=== PATIENT | female | born 1950 | race Caucasian/White ===

== ENCOUNTER 2017-01-25 17:03 | Inpatient (IN) | payer MEDICARE ==
--- NOTE | ~2017-01-25 | IDS ---
Interim Discharge Summary [facility] [address] [facility] [place]. [address] NAME: WESTON PAZ : 50 STATUS : ADM IN PAT#: [id number] AGE: 66 ADM/REG DATE : 01/25/17 MR#: [id number] REPORT SERV DATE: 01/30/17 DICTATED BY: SHANTELLE ZHENG DATE: 01/30/17 REPORT STATUS : Draft TRANSCRIBED BY: MODL DATE: 01/30/17 ADMISSION DATE: 01/25/2017 DISCHARGE DATE: Please see Dr. Lokesh Berg's admitting history and physical from 01/25/2017, for full details. Briefly, Ms. Paz is a 66-year-old, white female, who was admitted through the emergency department with respiratory failure. She was already intubated upon Dr. Berg's evaluation due to cyanosis and desaturation in the 60s. She was found to have a lactate level of 9 and infiltrate on chest x-ray and was admitted to the ICU with a presumptive diagnosis of pneumonia with septic shock. HOSPITAL COURSE: Ms. Paz was treated aggressively for septic shock with fluids, broad- spectrum antibiotics, and was mechanically ventilated. She was supported with both vasopressors and coverage for community-acquired pneumonia including Rocephin and azithromycin. She did not improve over the first couple of days with regard to her ability to wean from the ventilator and was upgraded to vancomycin and Zosyn, as she was quite disheveled upon her presentation and there was a concern for community-acquired MRSA as an etiology for her pneumonia. She had cultures and was treated with maintenance fluids. I picked up her care initially on Friday morning and felt she was somewhat volume overloaded with a net in greater than out and pulmonary vascular congestion on chest x-ray. She was diuresed with Bumex and had excellent urine output response. She continued to be treated with broad-spectrum antibiotics, bronchodilators and corticosteroids, and she was ultimately extubated on the . Since that time, she has been tolerating weaning of nasal oxygen and is considerably more awake and alert. Of note, she does have significant anxiety component to her shortness of breath and did require Seroquel and Precedex to control her anxiety. To extubate her, the Seroquel and Precedex has since been weaned off. ACTIVE PROBLEM LIST: At this point, includes acute hypoxemic and hypercapnic respiratory failure, status post extubation on 4:12 a.m., pneumonia, septic shock with marked lactic acidosis upon admission and associated shock liver now improved, acute kidney injury likely secondary to hypoperfusion during shock, toxic metabolic encephalopathy and agitation likely secondary to sepsis/toxin metabolic with question of underlying psychiatric illness, all of which is improved. She is a long-term tobacco abuser and is on a transdermal nicotine patch which we believe may have contributed to controlling her agitation and a couple of her home medications have been restarted as well. For prophylaxis, she is on Lovenox and proton pump inhibitor and she is a full code. She has morning labs ordered for tomorrow. Physical Therapy has begun to work with her in the intensive care unit and she will move out to the monitored bed to continue to rehab. Her daughters have been actively involved in her care. Her daughter Rahat phone number is [phone]. Hospitalist navigator has been notified of her transfer. Please call with questions. SHAWNA/KELSIE Shantelle Interim Discharge Summary [address] [address] NAME: WESTON PAZ : 50 STATUS : ADM IN [facility]#: [id number] AGE: 66 ADM/REG DATE : 01/25/17 MR#: [id number] REPORT SERV DATE: 01/30/17 DICTATED BY: SHANTELLE ZHENG DATE: 01/30/17 REPORT STATUS : Draft TRANSCRIBED BY: KELSIE DATE: 01/30/17 MD [place] / [id number] CC: Lokesh Berg MD
--- NOTE | ~2017-01-25 | HP ---
History And Physical [id number] [place]. [address] NAME: WESTON FREITAS : 50 STATUS : ADM IN [facility]#: [id number] AGE: 66 ADM/REG DATE : 01/25/17 MR#: [id number] REPORT SERV DATE: 01/25/17 DICTATED BY: NILDA BERG DATE: 01/25/17 REPORT STATUS : Draft TRANSCRIBED BY: MODL DATE: 01/25/17 DATE OF ADMISSION: 01/25/2017 CHIEF COMPLAINT: Respiratory failure. HISTORY OF PRESENT ILLNESS: The patient is a 66-year-old, white female with unknown past medical history who presents to the emergency room tonight with respiratory failure. The patient is intubated at the time of my interview, and family is not present so unable to provide a history. In talking with the ER physician, the family brought the patient to the emergency room with complaints that she was having some shortness of breath and a productive cough over the last several days up to a week and then over the last 24 to 48 hours, she is becoming became more lethargic, worsening respiratory status, and had blue lips. On arrival to the emergency room here, she had saturations in the 60s and was having agonal breathing so, she was intubated on arrival. She also was in shock and had a central line placed. Vasopressors were started and had a lactate level of 9. She had evidence of pneumonia on her chest x-ray and is now being admitted to the ICU for further management. PAST MEDICAL HISTORY: Unknown. HOME MEDICATIONS: Unknown. ALLERGIES: NO KNOWN DRUG ALLERGIES. SOCIAL HISTORY: Unable to obtain secondary to intubation. FAMILY HISTORY: Unable to obtain secondary to intubation. REVIEW OF SYSTEMS: Unable to obtain secondary to intubation and sedation. PHYSICAL EXAMINATION: VITAL SIGNS: Temperature 97.8, heart rate 65, respiratory rate 25, blood pressure 138/76. GENERAL: Sedated, intubated. HEENT: Pupils are equal, round, and reactive to light. ET tube in place. NECK: Supple. Nontender. No lymphadenopathy. No thyromegaly. No jugular venous distention. LUNGS: Coarse breath sounds bilaterally. No wheezes. CARDIOVASCULAR: Regular rate and rhythm. No murmurs, rubs, or gallops. ABDOMEN: Soft, nontender, nondistended. Positive bowel sounds. No hepatosplenomegaly. EXTREMITIES: No cyanosis, clubbing, or edema. NEURO: Sedated. PSYCH: Unable to assess. LABS AND IMAGING: Lactic acid 9.5, CBC with a white count of 12,000, with 72% neutrophils, hemoglobin 15, platelets 291. Metabolic profile with a procalcitonin of 0.39, sodium of 134, BUN of 24, creatinine of 1.3. Bilirubin of 1.8. Alkaline phosphatase 137, ALT 1231, History And Physical [address] [address] NAME: WESTON FREITAS : 50 STATUS : ADM IN PAT#: [id number] AGE: 66 ADM/REG DATE : 01/25/17 MR#: [id number] REPORT SERV DATE: 01/25/17 DICTATED BY: NILDA BERG DATE: 01/25/17 REPORT STATUS : Draft TRANSCRIBED BY: KELSIE DATE: 01/25/17 AST 897, albumin 2.9. BNP 165. Urinalysis unremarkable. Chest x-ray shows right perihilar and basilar infiltrates. ASSESSMENT AND PLAN: The patient is a 66-year-old female with unknown past medical history who presents to the emergency room with evidence of community-acquired pneumonia, respiratory failure, septic shock, acute liver injury, and acute renal failure. 1. Pneumonia, likely community acquired. We will start empiric coverage with Rocephin and azithromycin. We would get blood cultures x2 as well as sputum culture. I will also check urine Legionella and urine Strep pneumo antigens. 2. Acute hypoxic and hypercapnic respiratory failure. We will continue ventilator management. We will get a followup ABG and chest x-ray in the morning and wean her ventilator as tolerated. We are providing sedation with propofol and Precedex, as well as fentanyl for pain control, on the ventilator. We will provide daily awakening trials to assess her mental status. We will also assess readiness to extubate daily. 3. Septic shock. We will initiate antibiotics as above. We will check cultures, also check a random cortisol level. Currently, she is on Jason-Synephrine. We will change this to Levophed to maintain a MAP greater than 65. We will also provide some IV fluid resuscitation as she appears dehydrated. 4. Acute liver injury. ALT and AST are markedly elevated. Likely, this represents shock liver from her septic shock. Also check a hepatitis panel as well as a Tylenol level. We will maintain her MAP greater than 65. We will also get a right upper quadrant ultrasound, and monitor her LFTs daily. 5. Acute renal failure. Creatinine slightly elevated 1.3. We will provide IV fluid hydration and keep her MAP greater than 65. We will monitor her urine output and electrolytes closely every day. 6. The patient will be on heparin for DVT prophylaxis and Protonix for gastrointestinal prophylaxis. 7. The patient is full code. Total critical care time spent on this patient was 45 minutes. YECENIA/KELSIE Nilda Berg MD / [id number] CC: Nilda Berg MD
--- NOTE | ~2017-01-25 | DS ---
Discharge Summary [facility] [address] [place]. [address] NAME: WESTON FREITAS : 50 STATUS : DIS IN PAT#: [id number] AGE: 66 ADM/REG DATE : 01/25/17 MR#: [id number] REPORT SERV DATE: 02/04/17 DICTATED BY: TIFFANIE STAPLES DATE: 02/03/17 REPORT STATUS : Draft TRANSCRIBED BY: MODL DATE: 02/03/17 ADMISSION DATE: 01/25/2017 DISCHARGE DATE: 02/03/2017 This dictation is in addition to interim discharge summary dictated by Dr. Templeton on 01/30/2017. I assumed care of the patient on 02/01/2017. At the time of my assumption of care, the patient was on the floor off ventilator. She was requiring high oxygen at about 8 to 9 L. The patient was also complaining of constipation, the patient was given Mag citrate with resolution of her constipation. She was continued on IV antibiotics and the patient was gradually weaned, and plans were made to gradually wean the patient off high-flow oxygen to her baseline. During her hospital course while under my care, the patient has remained hemodynamically stable. Today, the patient was successfully weaned to 4 L with maintaining her saturation, and her other medical problems have remained stable. Given resolution of her presenting symptoms and given her hemodynamic stability, the patient will be discharged home to follow up with primary care physician. Plan has been discussed with the patient, who voices understanding and is agreeable with this plan. DISCHARGE DIAGNOSES: 1. Community-acquired pneumonia. 2. Acute hypoxic/hypercapnic respiratory failure. 3. Acute kidney injury. 4. Tobacco abuse. 5. Neuropathy. 6. Insomnia. 7. Toxic metabolic encephalopathy. DISCHARGE MEDICATIONS: 1. Gabapentin 800 mg p.o. three times a day. 2. Meloxicam 7.5 mg p.o. daily. 3. Nexium 20 mg p.o. daily. 4. Albuterol inhalation three times a day p.r.n. DISCHARGE PHYSICAL EXAMINATION: VITAL SIGNS: Blood pressure 117/69 with a pulse of 85, respirations 20, and O2 saturation 98% on 4 L nasal cannula. GENERAL: The patient is sitting in bed, wearing nasal cannula, in no acute distress. Speaking in full sentences. HEENT: Normocephalic and atraumatic. Extraocular motors intact. Moist oral mucosa. NECK: Trachea midline and symmetric. No JVD noted. CHEST: Nontender to palpation. CARDIOVASCULAR: Regular rate and rhythm. S1, S2. No murmurs, rubs, or gallops. LUNGS: Normal respiratory effort. At bases rales noted. ABDOMEN: Positive bowel sounds. Nontender. Nondistended. EXTREMITIES: No cyanosis, no clubbing, no edema. NEUROLOGIC: Alert and oriented x3. No focal deficits appreciated. Discharge Summary [address] [address] NAME: WESTON FREITAS : 50 STATUS : DIS IN PAT#: [id number] AGE: 66 ADM/REG DATE : 01/25/17 MR#: [id number] REPORT SERV DATE: 02/04/17 DICTATED BY: TIFFANIE STAPLES DATE: 02/03/17 REPORT STATUS : Draft TRANSCRIBED BY: KELSIE DATE: 02/03/17 DISPOSITION: The patient will be discharged home per the patient's request. ACTIVITY: As tolerated. DIET: 1800 calorie diet. Greater than 30 minutes were spent coordinating discharge, dictation of note, medication reconciliation, writing prescription, discussion of care with nursing staff. ANKIT/KELSIE Tiffanie Staples MD / [id number] CC: Lokesh Berg MD
[2017-01-25 16:32] LABS: BASOPHILS ABSOLUTE 0.13 10/3/uL (0.0-0.16); EOSINOPHILS 0.1 %; EOSINOPHILS ABSOLUTE 0.01 10/3/uL (0.0-0.53); ER CBC TAT 0 Hrs 15 Mins; HEMATOCRIT 50.2 % (36.0-48.0); HEMOGLOBIN 15.8 g/dL (12.0-16.0); IMMATURE GRANULOCYTES 4.3 %; IMMATURE GRANULOCYTES ABSOLUTE 0.54 10/3/uL (0.0-0.11); LYMPHOCYTES 10.5 %; LYMPHOCYTES ABSOLUTE 1.32 10/3/uL (0.67-4.30); MEAN CORPUS HGB CONC 31.5 g/dL (32.0-36.0); MEAN CORPUSCULAR HEMOGLOB 28.1 pg (26.0-34.0); MEAN CORPUSCULAR VOLUME 89.2 fL (80-100); MEAN PLATELET VOLUME 9.1 fL (9.2-13.0); MONOCYTES 11.9 %; MONOCYTES ABSOLUTE 1.49 10/3/uL (0.21-1.20); NEUTROPHILS 72.2 %; NEUTROPHILS ABSOLUTE 9.04 10/3/uL (2.02-8.40); PLATELET COUNT 291 10/3/uL (150-400); RBC DISTRIBUTION WIDTH 17.1 % (12.0-16.0); RED CELL COUNT 5.63 10/6/uL (4.0-5.6); WHITE BLOOD CELLS 12.5 10/3/uL (4.5-10.5)
[2017-01-25 16:36] LABS: MANUAL DIFF NO %
[2017-01-25 16:37] LABS: INTERNATIONAL NORMAL RATI 1.5 UNITS (-); PARTIAL THROMBO TIME 30.1 SEC (22.5-37.2); PROTIME (NOT ORD) 17.9 SEC (12.0-14.5)
[2017-01-25 16:40] LABS: LACTATE 9.5 MMOL/L (0.3-2.4)
[2017-01-25 16:44] LABS: A/G RATIO 0.6 (0.7-1.9); ALBUMIN 2.9 G/DL (3.5-5.0); ALKALINE PHOSPHATASE 137 U/L (45-117); BUN (BLOOD UREA NITROGEN) 24 MG/DL (6-23); CALCIUM, SERUM 9.1 MG/DL (8.5-10.4); CHLORIDE, SERUM 89 MMOL/L (96-112); CO2 (CARBON DIOXIDE) 25 MMOL/L (24-34); CREATININE 1.31 MG/DL (0.55-1.02); GFR AFRICAN AMERICAN 49 ML/MIN (>=60); GFR NON AFRICAN AMERICAN 42 ML/MIN (>=60); GLOBULIN 4.7 G/DL (2.5-4.1); GLUCOSE, SERUM 104 MG/DL (60-99); SGPT(ALT) 1231 U/L (5-65); SODIUM, SERUM 134 MMOL/L (135-148); TOTAL BILIRUBIN 1.8 MG/DL (0-1.2); TOTAL PROTEIN 7.6 G/DL (6.0-8.5)
[2017-01-25 16:46] LABS: POTASSIUM, SERUM 4.8 MMOL/L (3.5-5.3); SGOT(AST) 897 U/L (5-40)
[2017-01-25 16:49] LABS: BAND NEUTROPHILS 39 %; ER DIFF TAT 0 Hrs 32 Mins; IMMATURE GRANS ABSOLUTE (CALC) 0.38 10/3/uL (0.0-0.11); LYMPHOCYTES 2 %; LYMPHOCYTES ABSOLUTE (CALC) 0.25 10/3/uL (0.67-4.30); METAMYELOCYTES 3 %; MONOCYTES 10 %; MONOCYTES ABSOLUTE (CALC) 1.25 10/3/uL (0.21-1.20); NEUTROPHILS ABSOLUTE (CALC) 10.63 10/3/uL (2.02-8.40); SEGMENTED NEUTROPHIL (0) 46 %; TOTAL NUCLEATED CELLS 100
[2017-01-25 16:50] LABS: ANISOCYTOSIS 1+ (5-10/OIF) (0-5/OIF); TOXIC GRANULATION 2+
[2017-01-25 16:59] LABS: PROCALCITONIN 0.39 ng/mL (<0.5)
[~2017-01-25 17:03] MED LIST: *UNABLE3; GABAPENTIN; [UNRECOGNIZED DRUG - OTHER]
[2017-01-25 17:35] LABS: ASCORBIC ACID (UR NOT ORDER) NEG (NEG); BILIRUBIN, URINE NEGATIVE (NEG); ER URINALYSIS TAT 0 Hrs 13 Mins; KETONE, URINE NEGATIVE (NEG); LEUKOCYTE ESTERASE(NOT OR NEG (NEG); NITRITE (URINE) NEG (NEG); WBC (NOT ORDERED) (RFLEX) < 1 (0-5)
[2017-01-26 04:08] LABS: CARBOXYHEMOGLOBIN 0.3 % (0-3); HCO3 (ACTUAL BICARBONATE) 31.5 MEQ/L (23-27); HEMOBLOGIN CONTENT 14.8 G/DL (12-16); INSTRUMENT SERIAL # 35151; METHEMOGLOBIN 0.7 % (0-3); MODE CMV; O2 CONTENT 19.4 VOL% (18-24); OPERATOR ID 16503; PCO2 (CO2 TENSION) 60 MMHG (35-45); PO2 (O2 TENSION) 79 MMHG (79-93); SAMPLE Arterial; TIDAL VOLUME 400 ML; pH 7.34 (7.37-7.43)
[2017-01-26 05:54] LABS: BASOPHILS 0.3 %; BASOPHILS ABSOLUTE 0.04 10/3/uL (0.0-0.16); EOSINOPHILS 0 %; IMMATURE GRANULOCYTES 1.4 %; IMMATURE GRANULOCYTES ABSOLUTE 0.19 10/3/uL (0.0-0.11); LYMPHOCYTES 5.3 %; LYMPHOCYTES ABSOLUTE 0.71 10/3/uL (0.67-4.30); MEAN CORPUSCULAR HEMOGLOB 27.5 pg (26.0-34.0); MEAN PLATELET VOLUME 9.1 fL (9.2-13.0); MONOCYTES 4.4 %; MONOCYTES ABSOLUTE 0.58 10/3/uL (0.21-1.20); NEUTROPHILS 88.6 %; NEUTROPHILS ABSOLUTE 11.77 10/3/uL (2.02-8.40); RBC DISTRIBUTION WIDTH 16.8 % (12.0-16.0); WHITE BLOOD CELLS 13.3 10/3/uL (4.5-10.5)
[2017-01-26 05:59] LABS: HEMATOCRIT 43.8 % (36.0-48.0); MANUAL DIFF NO %; MEAN CORPUSCULAR VOLUME 85.9 fL (80-100); PLATELET COUNT 195 10/3/uL (150-400)
[2017-01-26 06:16] LABS: BUN (BLOOD UREA NITROGEN) 23 MG/DL (6-23); CHLORIDE, SERUM 95 MMOL/L (96-112); PHOSPHORUS, SERUM 3.5 MG/DL (2.5-4.5); POTASSIUM, SERUM 4.3 MMOL/L (3.5-5.3); SGOT(AST) 1115 U/L (5-40); SGPT(ALT) 1225 U/L (5-65); SODIUM, SERUM 135 MMOL/L (135-148)
[2017-01-26 06:19] LABS: A/G RATIO 0.6 (0.7-1.9); ALBUMIN 2.2 G/DL (3.5-5.0); ALKALINE PHOSPHATASE 110 U/L (45-117); CO2 (CARBON DIOXIDE) 32 MMOL/L (24-34); CREATININE 0.81 MG/DL (0.55-1.02); GFR AFRICAN AMERICAN 88 ML/MIN (>=60); GFR NON AFRICAN AMERICAN 76 ML/MIN (>=60); GLOBULIN 3.7 G/DL (2.5-4.1); GLUCOSE, SERUM 190 MG/DL (60-99); TOTAL PROTEIN 5.9 G/DL (6.0-8.5)
[2017-01-26 11:17] LABS: FREE T4 1.83 NG/DL (0.76-1.46); ULTRASENSITIVE TSH 0.629 MCIU/ML (0.358-3.740)
[2017-01-27 03:52] LABS: BE (BASE EXCESS) 3.7 MEQ/L (0 +/- 2.5); CARBOXYHEMOGLOBIN 0.3 % (0-3); HCO3 (ACTUAL BICARBONATE) 30.1 MEQ/L (23-27); HEMOBLOGIN CONTENT 14.2 G/DL (12-16); INSTRUMENT SERIAL # 35151; METHEMOGLOBIN 0.6 % (0-3); MODE CMV; O2 CONTENT 18.9 VOL% (18-24); OPERATOR ID 16503; PCO2 (CO2 TENSION) 52 MMHG (35-45); PO2 (O2 TENSION) 80 MMHG (79-93); SAMPLE Arterial; TIDAL VOLUME 400 ML; pH 7.38 (7.37-7.43)
[2017-01-27 03:59] LABS: BASOPHILS 0.1 %; BASOPHILS ABSOLUTE 0.02 10/3/uL (0.0-0.16); EOSINOPHILS 0 %; HEMATOCRIT 42.8 % (36.0-48.0); HEMOGLOBIN 13.7 g/dL (12.0-16.0); IMMATURE GRANULOCYTES 0.9 %; IMMATURE GRANULOCYTES ABSOLUTE 0.14 10/3/uL (0.0-0.11); LYMPHOCYTES 5.6 %; LYMPHOCYTES ABSOLUTE 0.91 10/3/uL (0.67-4.30); MEAN CORPUSCULAR HEMOGLOB 27.2 pg (26.0-34.0); MEAN CORPUSCULAR VOLUME 85.1 fL (80-100); MONOCYTES 6.4 %; MONOCYTES ABSOLUTE 1.04 10/3/uL (0.21-1.20); NEUTROPHILS ABSOLUTE 14.16 10/3/uL (2.02-8.40); PLATELET COUNT 161 10/3/uL (150-400); RBC DISTRIBUTION WIDTH 16.9 % (12.0-16.0); RED CELL COUNT 5.03 10/6/uL (4.0-5.6); WHITE BLOOD CELLS 16.3 10/3/uL (4.5-10.5)
[2017-01-27 04:01] LABS: MANUAL DIFF NO %
[2017-01-27 04:12] LABS: A/G RATIO 0.6 (0.7-1.9); ALBUMIN 2.1 G/DL (3.5-5.0); ALKALINE PHOSPHATASE 98 U/L (45-117); BUN (BLOOD UREA NITROGEN) 26 MG/DL (6-23); CALCIUM, SERUM 8.7 MG/DL (8.5-10.4); CHLORIDE, SERUM 100 MMOL/L (96-112); CO2 (CARBON DIOXIDE) 33 MMOL/L (24-34); CREATININE 0.62 MG/DL (0.55-1.02); GFR AFRICAN AMERICAN 109 ML/MIN (>=60); GFR NON AFRICAN AMERICAN 94 ML/MIN (>=60); GLOBULIN 3.7 G/DL (2.5-4.1); GLUCOSE, SERUM 146 MG/DL (60-99); PHOSPHORUS, SERUM 2.7 MG/DL (2.5-4.5); POTASSIUM, SERUM 4.2 MMOL/L (3.5-5.3); SGOT(AST) 261 U/L (5-40); SGPT(ALT) 794 U/L (5-65); SODIUM, SERUM 140 MMOL/L (135-148); TOTAL BILIRUBIN 0.8 MG/DL (0-1.2); TOTAL PROTEIN 5.8 G/DL (6.0-8.5)
[2017-01-27 10:21] LABS: HEPATITIS B SURFACE ANTIGEN NON-REACTIVE (NON-REACT)
[2017-01-27 10:38] LABS: HEPATITIS C ANTIBODY NON-REACTIVE (NON-REACT)
[2017-01-27 10:39] LABS: HEPATITIS B CORE AB IGM NON-REACTIVE (NON-REAC)
[2017-01-27 10:41] LABS: HEP A ANTIBODY IGM NON-REACTIVE (NON-REACT)
[2017-01-27 12:08] LABS: PREALBUMIN 4.4 MG/DL (17.0-43.0)
[2017-01-28 04:07] LABS: BASOPHILS 0.1 %; BASOPHILS ABSOLUTE 0.02 10/3/uL (0.0-0.16); EOSINOPHILS 0.1 %; EOSINOPHILS ABSOLUTE 0.01 10/3/uL (0.0-0.53); HEMATOCRIT 43.8 % (36.0-48.0); HEMOGLOBIN 13.9 g/dL (12.0-16.0); IMMATURE GRANULOCYTES 0.7 %; LYMPHOCYTES 12.9 %; LYMPHOCYTES ABSOLUTE 1.76 10/3/uL (0.67-4.30); MEAN CORPUS HGB CONC 31.7 g/dL (32.0-36.0); MEAN CORPUSCULAR HEMOGLOB 27.1 pg (26.0-34.0); MEAN CORPUSCULAR VOLUME 85.4 fL (80-100); MEAN PLATELET VOLUME 9.6 fL (9.2-13.0); MONOCYTES 6.7 %; MONOCYTES ABSOLUTE 0.91 10/3/uL (0.21-1.20); NEUTROPHILS 79.5 %; NEUTROPHILS ABSOLUTE 10.87 10/3/uL (2.02-8.40); PLATELET COUNT 125 10/3/uL (150-400); RBC DISTRIBUTION WIDTH 17.1 % (12.0-16.0); RED CELL COUNT 5.13 10/6/uL (4.0-5.6); WHITE BLOOD CELLS 13.7 10/3/uL (4.5-10.5)
[2017-01-28 04:12] LABS: MANUAL DIFF NO %
[2017-01-28 04:22] LABS: ALBUMIN 2.1 G/DL (3.5-5.0); CHLORIDE, SERUM 91 MMOL/L (96-112); CREATININE 0.61 MG/DL (0.55-1.02); GFR AFRICAN AMERICAN 109 ML/MIN (>=60); GFR NON AFRICAN AMERICAN 94 ML/MIN (>=60); GLUCOSE, SERUM 146 MG/DL (60-99); PHOSPHORUS, SERUM 2.8 MG/DL (2.5-4.5); SODIUM, SERUM 138 MMOL/L (135-148)
[2017-01-28 04:55] LABS: POTASSIUM, SERUM 3.3 MMOL/L (3.5-5.3)
[2017-01-28 04:56] LABS: BUN (BLOOD UREA NITROGEN) 22 MG/DL (6-23); CO2 (CARBON DIOXIDE) 42 MMOL/L (24-34)
[2017-01-28 06:08] LABS: PROCALCITONIN 1.41 ng/mL (<0.5)
[2017-01-28 09:44] LABS: POTASSIUM, SERUM 3.6 MMOL/L (3.5-5.3)
[2017-01-28] MEDS ORDERED: ALBUTEROL0.083 % INH (12:30)
[2017-01-28] MEDS ORDERED: PROAIR HFA INH (12:30)
[2017-01-28] MEDS ORDERED: NEUR800 PO (12:30)
[2017-01-28] MEDS ORDERED: NEXIUM20 M1 PO (12:31)
[2017-01-28] MEDS ORDERED: EXCEDRIN EXTRA1 EACH PO (12:31)
[2017-01-28] MEDS ORDERED: ACET500CAP PO (12:31)
[2017-01-29 05:16] LABS: BASOPHILS 0.3 %; BASOPHILS ABSOLUTE 0.03 10/3/uL (0.0-0.16); EOSINOPHILS 1.6 %; EOSINOPHILS ABSOLUTE 0.18 10/3/uL (0.0-0.53); HEMATOCRIT 40.8 % (36.0-48.0); HEMOGLOBIN 13.4 g/dL (12.0-16.0); IMMATURE GRANULOCYTES 0.7 %; IMMATURE GRANULOCYTES ABSOLUTE 0.08 10/3/uL (0.0-0.11); LYMPHOCYTES 16.9 %; LYMPHOCYTES ABSOLUTE 1.85 10/3/uL (0.67-4.30); MEAN CORPUS HGB CONC 32.8 g/dL (32.0-36.0); MEAN CORPUSCULAR HEMOGLOB 27.7 pg (26.0-34.0); MEAN CORPUSCULAR VOLUME 84.3 fL (80-100); MEAN PLATELET VOLUME 9.6 fL (9.2-13.0); MONOCYTES ABSOLUTE 0.88 10/3/uL (0.21-1.20); NEUTROPHILS 72.5 %; NEUTROPHILS ABSOLUTE 7.92 10/3/uL (2.02-8.40); PLATELET COUNT 89 10/3/uL (150-400); RBC DISTRIBUTION WIDTH 17.6 % (12.0-16.0); RED CELL COUNT 4.84 10/6/uL (4.0-5.6); WHITE BLOOD CELLS 10.9 10/3/uL (4.5-10.5)
[2017-01-29 05:23] LABS: ALBUMIN 2.2 G/DL (3.5-5.0); CALCIUM, SERUM 8.6 MG/DL (8.5-10.4); CHLORIDE, SERUM 92 MMOL/L (96-112); CO2 (CARBON DIOXIDE) 39 MMOL/L (24-34); CREATININE 0.42 MG/DL (0.55-1.02); GFR AFRICAN AMERICAN 124 ML/MIN (>=60); GFR NON AFRICAN AMERICAN 107 ML/MIN (>=60); GLUCOSE, SERUM 129 MG/DL (60-99); PHOSPHORUS, SERUM 2.9 MG/DL (2.5-4.5); POTASSIUM, SERUM 3.5 MMOL/L (3.5-5.3); SODIUM, SERUM 137 MMOL/L (135-148)
[2017-01-29 05:24] LABS: BUN (BLOOD UREA NITROGEN) 16 MG/DL (6-23)
[2017-01-29 05:32] LABS: MANUAL DIFF NO %
[2017-01-30 05:31] LABS: BASOPHILS 0.2 %; BASOPHILS ABSOLUTE 0.02 10/3/uL (0.0-0.16); EOSINOPHILS 3.3 %; EOSINOPHILS ABSOLUTE 0.37 10/3/uL (0.0-0.53); HEMATOCRIT 42.6 % (36.0-48.0); HEMOGLOBIN 13.5 g/dL (12.0-16.0); IMMATURE GRANULOCYTES 0.7 %; IMMATURE GRANULOCYTES ABSOLUTE 0.08 10/3/uL (0.0-0.11); LYMPHOCYTES 14.1 %; LYMPHOCYTES ABSOLUTE 1.57 10/3/uL (0.67-4.30); MEAN CORPUS HGB CONC 31.7 g/dL (32.0-36.0); MEAN CORPUSCULAR HEMOGLOB 26.8 pg (26.0-34.0); MEAN CORPUSCULAR VOLUME 84.5 fL (80-100); MONOCYTES 8.9 %; MONOCYTES ABSOLUTE 0.99 10/3/uL (0.21-1.20); NEUTROPHILS 72.8 %; NEUTROPHILS ABSOLUTE 8.12 10/3/uL (2.02-8.40); PLATELET COUNT 104 10/3/uL (150-400); RBC DISTRIBUTION WIDTH 17.5 % (12.0-16.0); RED CELL COUNT 5.04 10/6/uL (4.0-5.6); WHITE BLOOD CELLS 11.2 10/3/uL (4.5-10.5)
[2017-01-30 05:32] LABS: MANUAL DIFF NO %
[2017-01-30 06:05] LABS: ALBUMIN 2.3 G/DL (3.5-5.0); BUN (BLOOD UREA NITROGEN) 14 MG/DL (6-23); CHLORIDE, SERUM 95 MMOL/L (96-112); CREATININE 0.41 MG/DL (0.55-1.02); GFR AFRICAN AMERICAN 125 ML/MIN (>=60); GFR NON AFRICAN AMERICAN 108 ML/MIN (>=60); PHOSPHORUS, SERUM 2.8 MG/DL (2.5-4.5); POTASSIUM, SERUM 3.6 MMOL/L (3.5-5.3); SODIUM, SERUM 135 MMOL/L (135-148)
[2017-01-30 06:07] LABS: CO2 (CARBON DIOXIDE) 34 MMOL/L (24-34); GLUCOSE, SERUM 83 MG/DL (60-99)
[2017-01-30 06:08] LABS: CALCIUM, SERUM 9.1 MG/DL (8.5-10.4)
[2017-01-31 05:34] LABS: BASOPHILS 0.2 %; BASOPHILS ABSOLUTE 0.02 10/3/uL (0.0-0.16); EOSINOPHILS 4.3 %; HEMATOCRIT 40.7 % (36.0-48.0); HEMOGLOBIN 13.2 g/dL (12.0-16.0); IMMATURE GRANULOCYTES ABSOLUTE 0.09 10/3/uL (0.0-0.11); MEAN CORPUS HGB CONC 32.4 g/dL (32.0-36.0); MEAN CORPUSCULAR VOLUME 83.4 fL (80-100); MEAN PLATELET VOLUME 10.1 fL (9.2-13.0); MONOCYTES 6.6 %; MONOCYTES ABSOLUTE 0.61 10/3/uL (0.21-1.20); NEUTROPHILS 62.9 %; NEUTROPHILS ABSOLUTE 5.79 10/3/uL (2.02-8.40); PLATELET COUNT 127 10/3/uL (150-400); RBC DISTRIBUTION WIDTH 17.4 % (12.0-16.0); RED CELL COUNT 4.88 10/6/uL (4.0-5.6); WHITE BLOOD CELLS 9.2 10/3/uL (4.5-10.5)
[2017-01-31 05:40] LABS: MANUAL DIFF NO %
[2017-01-31 07:35] LABS: ALBUMIN 2.2 G/DL (3.5-5.0); BUN (BLOOD UREA NITROGEN) 15 MG/DL (6-23); CALCIUM, SERUM 8.9 MG/DL (8.5-10.4); CHLORIDE, SERUM 96 MMOL/L (96-112); CO2 (CARBON DIOXIDE) 31 MMOL/L (24-34); CREATININE 0.45 MG/DL (0.55-1.02); GFR AFRICAN AMERICAN 121 ML/MIN (>=60); GFR NON AFRICAN AMERICAN 104 ML/MIN (>=60); GLUCOSE, SERUM 98 MG/DL (60-99); PHOSPHORUS, SERUM 2.6 MG/DL (2.5-4.5); POTASSIUM, SERUM 3.6 MMOL/L (3.5-5.3); SODIUM, SERUM 134 MMOL/L (135-148)
[2017-02-01 04:32] LABS: BASOPHILS 0.2 %; BASOPHILS ABSOLUTE 0.02 10/3/uL (0.0-0.16); EOSINOPHILS 5.6 %; EOSINOPHILS ABSOLUTE 0.49 10/3/uL (0.0-0.53); HEMATOCRIT 37.4 % (36.0-48.0); HEMOGLOBIN 11.9 g/dL (12.0-16.0); IMMATURE GRANULOCYTES 0.8 %; IMMATURE GRANULOCYTES ABSOLUTE 0.07 10/3/uL (0.0-0.11); LYMPHOCYTES 23.4 %; LYMPHOCYTES ABSOLUTE 2.04 10/3/uL (0.67-4.30); MEAN CORPUS HGB CONC 31.8 g/dL (32.0-36.0); MEAN CORPUSCULAR HEMOGLOB 26.7 pg (26.0-34.0); MEAN CORPUSCULAR VOLUME 83.9 fL (80-100); MEAN PLATELET VOLUME 9.8 fL (9.2-13.0); MONOCYTES 9.4 %; MONOCYTES ABSOLUTE 0.82 10/3/uL (0.21-1.20); NEUTROPHILS 60.6 %; NEUTROPHILS ABSOLUTE 5.26 10/3/uL (2.02-8.40); PLATELET COUNT 154 10/3/uL (150-400); RBC DISTRIBUTION WIDTH 17.3 % (12.0-16.0); RED CELL COUNT 4.46 10/6/uL (4.0-5.6); WHITE BLOOD CELLS 8.7 10/3/uL (4.5-10.5)
[2017-02-01 04:35] LABS: MANUAL DIFF NO %
[2017-02-01 04:49] LABS: A/G RATIO 0.5 (0.7-1.9); ALBUMIN 2.1 G/DL (3.5-5.0); ALKALINE PHOSPHATASE 92 U/L (45-117); BUN (BLOOD UREA NITROGEN) 18 MG/DL (6-23); CALCIUM, SERUM 8.7 MG/DL (8.5-10.4); CHLORIDE, SERUM 95 MMOL/L (96-112); CO2 (CARBON DIOXIDE) 33 MMOL/L (24-34); CREATININE 0.44 MG/DL (0.55-1.02); GFR AFRICAN AMERICAN 122 ML/MIN (>=60); GFR NON AFRICAN AMERICAN 105 ML/MIN (>=60); GLUCOSE, SERUM 93 MG/DL (60-99); POTASSIUM, SERUM 4.3 MMOL/L (3.5-5.3); SGOT(AST) 31 U/L (5-40); SGPT(ALT) 105 U/L (5-65); SODIUM, SERUM 137 MMOL/L (135-148); TOTAL BILIRUBIN 1.1 MG/DL (0-1.2); TOTAL PROTEIN 6.1 G/DL (6.0-8.5)
[2017-02-01 05:58] LABS: PROCALCITONIN 0.16 ng/mL (<0.5)
[2017-02-02 04:06] LABS: BASOPHILS 0.6 %; BASOPHILS ABSOLUTE 0.04 10/3/uL (0.0-0.16); EOSINOPHILS 8.9 %; EOSINOPHILS ABSOLUTE 0.62 10/3/uL (0.0-0.53); HEMATOCRIT 34.9 % (36.0-48.0); HEMOGLOBIN 11.1 g/dL (12.0-16.0); IMMATURE GRANULOCYTES 0.4 %; IMMATURE GRANULOCYTES ABSOLUTE 0.03 10/3/uL (0.0-0.11); LYMPHOCYTES 27.6 %; LYMPHOCYTES ABSOLUTE 1.91 10/3/uL (0.67-4.30); MEAN CORPUS HGB CONC 31.8 g/dL (32.0-36.0); MEAN CORPUSCULAR HEMOGLOB 26.9 pg (26.0-34.0); MEAN CORPUSCULAR VOLUME 84.7 fL (80-100); MEAN PLATELET VOLUME 9.7 fL (9.2-13.0); MONOCYTES 9.5 %; MONOCYTES ABSOLUTE 0.66 10/3/uL (0.21-1.20); NEUTROPHILS ABSOLUTE 3.67 10/3/uL (2.02-8.40); PLATELET COUNT 185 10/3/uL (150-400); RBC DISTRIBUTION WIDTH 17.2 % (12.0-16.0); RED CELL COUNT 4.12 10/6/uL (4.0-5.6); WHITE BLOOD CELLS 6.9 10/3/uL (4.5-10.5)
[2017-02-02 04:08] LABS: MANUAL DIFF NO %
[2017-02-02 04:21] LABS: A/G RATIO 0.6 (0.7-1.9); ALBUMIN 2.1 G/DL (3.5-5.0); ALKALINE PHOSPHATASE 76 U/L (45-117); BUN (BLOOD UREA NITROGEN) 15 MG/DL (6-23); CALCIUM, SERUM 8.7 MG/DL (8.5-10.4); CHLORIDE, SERUM 98 MMOL/L (96-112); CO2 (CARBON DIOXIDE) 34 MMOL/L (24-34); CREATININE 0.43 MG/DL (0.55-1.02); GFR AFRICAN AMERICAN 123 ML/MIN (>=60); GFR NON AFRICAN AMERICAN 106 ML/MIN (>=60); GLOBULIN 3.5 G/DL (2.5-4.1); GLUCOSE, SERUM 104 MG/DL (60-99); POTASSIUM, SERUM 4.3 MMOL/L (3.5-5.3); SGOT(AST) 24 U/L (5-40); SGPT(ALT) 79 U/L (5-65); SODIUM, SERUM 140 MMOL/L (135-148); TOTAL BILIRUBIN 0.5 MG/DL (0-1.2); TOTAL PROTEIN 5.6 G/DL (6.0-8.5)
[2017-02-03 03:44] LABS: BASOPHILS 0.4 %; BASOPHILS ABSOLUTE 0.03 10/3/uL (0.0-0.16); EOSINOPHILS 6.6 %; EOSINOPHILS ABSOLUTE 0.49 10/3/uL (0.0-0.53); HEMATOCRIT 33.9 % (36.0-48.0); HEMOGLOBIN 10.6 g/dL (12.0-16.0); IMMATURE GRANULOCYTES 0.5 %; IMMATURE GRANULOCYTES ABSOLUTE 0.04 10/3/uL (0.0-0.11); LYMPHOCYTES 25.8 %; MANUAL DIFF NO %; MEAN CORPUS HGB CONC 31.3 g/dL (32.0-36.0); MEAN CORPUSCULAR HEMOGLOB 27.1 pg (26.0-34.0); MEAN CORPUSCULAR VOLUME 86.7 fL (80-100); MONOCYTES 10.9 %; NEUTROPHILS 55.8 %; NEUTROPHILS ABSOLUTE 4.11 10/3/uL (2.02-8.40); PLATELET COUNT 209 10/3/uL (150-400); RBC DISTRIBUTION WIDTH 17.1 % (12.0-16.0); RED CELL COUNT 3.91 10/6/uL (4.0-5.6); WHITE BLOOD CELLS 7.4 10/3/uL (4.5-10.5)
[2017-02-03 03:58] LABS: BUN (BLOOD UREA NITROGEN) 16 MG/DL (6-23); CALCIUM, SERUM 8.5 MG/DL (8.5-10.4); CHLORIDE, SERUM 99 MMOL/L (96-112); CO2 (CARBON DIOXIDE) 35 MMOL/L (24-34); GFR AFRICAN AMERICAN 117 ML/MIN (>=60); GFR NON AFRICAN AMERICAN 101 ML/MIN (>=60); GLUCOSE, SERUM 106 MG/DL (60-99); POTASSIUM, SERUM 4.3 MMOL/L (3.5-5.3); SODIUM, SERUM 140 MMOL/L (135-148)
[2017-02-03 07:03] LABS: PROCALCITONIN <0.05 ng/mL (<0.5)
[2017-02-03] MEDS ORDERED: MOBIC7.5 PO (17:00)
== END 2017-02-03 18:22 | disposition home or self-care (01) | DRG 870 ==
LOC: ER 17:03 → CCU 19:28 → 7NO 01-30 15:20
PROVIDERS: Emergency Medicine; Hospitalist; Internal Medicine; Internal Medicine Critical Care Medicine
PROC: 0BH17EZ Insertion of Endotracheal Airway into Trachea, Via Natural or Artificial Opening (ICD-10-PCS; principal; 2017-01-25)
PROC: 5A1955Z Respiratory Ventilation, Greater than 96 Consecutive Hours (ICD-10-PCS; 2017-01-25)
PROC: 02HV33Z Insertion of Infusion Device into Superior Vena Cava, Percutaneous Approach (ICD-10-PCS; 2017-01-26)
PROC: 4A02X4A Measurement of Cardiac Electrical Activity, Guidance, External Approach (ICD-10-PCS; 2017-01-26)
DX: A41.9 Sepsis, unspecified organism (principal); K72.00 Acute and subacute hepatic failure without coma; R65.21 Severe sepsis with septic shock; G92 Toxic encephalopathy; J18.9 Pneumonia, unspecified organism; J96.01 Acute respiratory failure with hypoxia; J96.02 Acute respiratory failure with hypercapnia; N17.9 Acute kidney failure, unspecified; E86.0 Dehydration; K59.00 Constipation, unspecified; M19.90 Unspecified osteoarthritis, unspecified site; F17.210 Nicotine dependence, cigarettes, uncomplicated; G62.9 Polyneuropathy, unspecified; G47.00 Insomnia, unspecified
CPT/HCPCS: 31720; 36600; 71010; 74000; 76705; 80048; 80053; 80069; 80074; 81001; 82330; 82533; 82803; 82805; 82947; 83036; 83605; 83735; 83880; 84100; 84132; 84134; 84145; 84295; 84439; 84443; 85014; 85025; 85610; 85730; 87040; 87070; 87205; 87449; 87641; 92610-GN; 92950; 93005; 94002; 94003; 94640; 94660; 94667; 94770; 96365; 96375; 96376; 97162-GP; 97530-GP; 99291; A9270-GY; C9113; G0480; G8978-CK-GP; G8979-CI-GP; G8996-CI-GN; G8997-CI-GN; G8998-CI-GN; J0330; J0456; J1956; J2370; J2543; J2930; J3010; J3370